=== PATIENT | male | born 1980 | race American Indian/Alaskan Native ===

== ENCOUNTER 2020-10-18 07:26 | Emergency (ER) | payer MEDICARE ==
[2020-10-18 07:41] VITALS: BP 136/91
--- NOTE | 2020-10-18 10:46 | Emergency Department Report ---
ED General Adult HPI - General Chief complaint: Headache Stated complaint: HEADACHE, LEFT EYE PAIN Time Seen by Provider: 10/18/20 09:47 Source: patient Mode of arrival: Ambulatory Limitations: No Limitations - History of Present Illness Initial comments: 40-year-old -[place] male presents to the emergency room stating that he has had a headache and left eye pain for a few days. Patient states that he has been having chest pain for the last week. Patient denies any cough. Patient reports that he was discharged from [facility] [place] and comes here stating that they did not do a CT scan of his head. Patient reports that his headache is not the worst headache of his life. Denies any nausea no vomiting states he does have some blurred vision but was told that he needed to wear glasses and has not had his eyes checked in 2 years. Patient denies any runny nose nasal congestion no photophobia. Patient also reports chest pain for a week try taking Shayy- [place] plus. He reports that the pain is in his upper chest when he bends down he has sharp pains. He denies any radiation of his pain. Denies any prevention from sleeping. Denies any injury to his chest. Denies any cough no fever. Patient denies thunderclap headache or worst headache of his life. Patient denies any difficulty with moving his neck no neck pain. Patient does endorse that he smokes cigarettes daily denies any marijuana or alcohol use. Patient reports no past medical history takes no medications on a daily basis and has no known drug allergies. -: week(s) (1 week Chest pain. ) Location: eyes (left ), chest - Related Data Allergies Allergy/AdvReac Type Severity Reaction Status Date / Time No Known Allergies Allergy Unverified 10/18/20 07:38 ED Review of Systems ROS: Stated complaint: HEADACHE, LEFT EYE PAIN Other details as noted in HPI ED Past Medical Hx - Past Medical History Previous Medical History?: Yes Hx Asthma: Yes - Surgical History Past Surgical History?: No - Social History Smoking Status: Current Every Day Smoker Substance Use Type: None ED Physical Exam - General Limitations: No Limitations General appearance: alert, in no apparent distress - Head Head exam: Present: atraumatic, normocephalic - Eye Eye exam: Present: normal appearance - Expanded Eye Exam Expanded Eyelids: Normal Inspection: Left Pupils: Regular, Round: Bilateral Sclera/Conjunctival: Normal Inspection: Bilateral Visual acuity (R) = 20/: 20 Visual acuity (L) = 20/: 40 With correction: Yes (20) IOP measured with: Tonopen (not availble) - ENT ENT exam: Present: mucous membranes moist - Neck Neck exam: Present: normal inspection - Respiratory Respiratory exam: Present: normal lung sounds bilaterally. Absent: respiratory distress - Cardiovascular Cardiovascular Exam: Present: regular rate, normal rhythm. Absent: systolic murmur, diastolic murmur, rubs, gallop - GI/Abdominal GI/Abdominal exam: Present: soft, normal bowel sounds - Rectal Rectal exam: Present: deferred - Extremities Exam Extremities exam: Present: normal inspection - Back Exam Back exam: Present: normal inspection - Neurological Exam Neurological exam: Present: alert, oriented X3, CN II-XII intact, normal gait - Expanded Neurological Exam Expanded Neurological exam: Present: protecting the airway. Absent: ataxia, total aphasia Patient oriented to: Present: person, place, time Cranial nerves: EOM's Intact: Normal, Gag Reflex: Normal, Tongue Deviation: Normal, Nystagmus: Normal, Facial Sensation: Normal, Facial Palsy with Forehead Movement: Normal, Facial Palsy without Forehead Movement: Normal Cerebellar function: Finger to Nose: Normal, Heel to Belcher: Normal, Romberg: Normal Upper motor neuron: Yaya Neglect: Abnormal Right, Pronator Drift: Abnormal Right, Babinski Sign: Abnormal Right, Sensory Extinction: Abnormal Right Sensory exam: Upper Extremity Light Touch: Normal, Upper Extremity Pin Prick: Normal, Upper Extremity Temperature: Normal, UE 2 Point Discrimination: Normal, Lower Extremity Light Touch: Normal, Lower Extremity Pin Prick: Normal, Lower Extremity Temperature: Normal, LE 2 Point Discrimination: Normal Motor strength exam: RUE: 4, LUE: 4, RLE: 4, LLE: 4 Best Eye Response (Amber): (4) open spontaneously Best Motor Response (Amber): (6) obeys commands Best Verbal Response ([place]): (5) oriented Amber Total: 15 - Psychiatric Psychiatric exam: Present: normal affect, normal mood - Skin Skin exam: Present: warm, dry, intact, normal color. Absent: rash ED Course Vital Signs 10/18/20 10/18/20 07:39 08:58 Temperature 98.3 F Pulse Rate 72 Respiratory 16 16 Rate Blood Pressure 136/91 O2 Sat by Pulse 99 Oximetry - Consultations Consultation #1: 10/18/20 13:41 Call central supplies to locate Dami[facility]-Pen as we do not know where the ER pain is. Consultation #2: 10/18/20 15:[address] Jeronimo from [facility] in [place] she states that she would like to see the patient tomorrow. She feels that there is no medication that is needed at this time. She feels that is less likely glaucoma but question if it is possible iritis versus uveitis. States that she evaluate tomorrow. ED Medical Decision Making - Lab Data Laboratory Tests 10/18/20 11:08 Troponin T < 0.010 - EKG Data EKG shows normal: sinus rhythm Rate: normal - Radiology Data Radiology results: report reviewed [facility] [address] [place] [address] XRay Report Signed Patient: ISIS GARCIA MR#: [id number] : 1980 Acct:[id number] Age/Sex: 40 / M ADM Date: 10/18/20 Loc: ED Attending Dr: Ordering Physician: ZENOBIA FLORES Date of Service: 10/18/20 Procedure(s): XR chest routine 2V Accession Number(s): [id number] cc: ZENOBIA FLORES Fluoro Time In Minutes: CHEST 2 VIEWS INDICATION / CLINICAL INFORMATION: chest pain. COMPARISON: 02/14/2020 FINDINGS: SUPPORT DEVICES: None. HEART / MEDIASTINUM: No significant abnormality. LUNGS / PLEURA: No significant pulmonary or pleural abnormality. No pneumothorax. ADDITIONAL FINDINGS: No significant additional findings. IMPRESSION: 1. No acute findings. Signer Name: Chris Gan DO Signed: 10/18/2020 11:37 AM Workstation Name: [id number] Transcribed By: CARRIE Dictated By: CHRIS GAN DO Electronically Authenticated By: CHRIS GAN DO Signed Date/Time: 10/18/20 1137 DD/ 36 TD/TT: Print Cancel - Medical Decision Making 40-year-old -[place] male presents to the emergency room stating that he has had a headache and left eye pain for a few days. Patient states that he has been having chest pain for the last week. Patient denies any cough. Patient reports that he was discharged from [facility] [place] and comes here stating that they did not do a CT scan of his head. Patient reports that his headache is not the worst headache of his life. Denies any nausea no vomiting states he does have some blurred vision but was told that he needed to wear glasses and has not had his eyes checked in 2 years. Patient denies any runny nose nasal congestion no photophobia. Patient also reports chest pain for a week try taking Shayy- [place] plus. He reports that the pain is in his upper chest when he bends down he has sharp pains. He denies any radiation of his pain. Denies any prevention from sleeping. Denies any injury to his chest. Denies any cough no fever. Patient denies thunderclap headache or worst headache of his life. Patient denies any difficulty with moving his neck no neck pain. Patient does endorse that he smokes cigarettes daily denies any marijuana or alcohol use. Patient reports no past medical history takes no medications on a daily basis and has no known drug allergies. Discussed case with ER attending Dr. Coelho recommends visual acuity, eye pressure, chest x-ray and one troponin. Chest x-ray is within normal limits negative troponin fluorescein exam is negative for any foreign body no corneal abrasion. EKG shows enlargement of the atrial. Visual acuities 20/20 both eyes 20/40 left eye and 20/25 right eye. Patient is stable to be discharged home and to follow-up with a primary care provider. Damián-Pen is not available in the ER charge nurse Sanna pineda in both [place]. Critical care attestation.: If time is entered above; I have spent that time in minutes in the direct care of this critically ill patient, excluding procedure time. ED Disposition Clinical Impression: Acute nonspecific chest pain with low risk of coronary artery disease, In termittent headache, Blurring, left eye, Acute left eye pain Disposition: - TO HOME OR SELFCARE Is pt being admited?: No Does the pt Need Aspirin: No Condition: Stable Instructions: Nonspecific Chest Pain, Adult, [id number], Pain Without a Known Cause, Chest Pain (ED) Additional Instructions: Recommend trying [id number] Excedrin Migraine. Follow-up with an baseball inspector and repairer to check eye pressure. [facility] will see you tomorrow They are locating in [place] listing below for your convenience. I have listed Dr. Zelaya he is also an baseball inspector and repairer that she can call to see if you can get an appointment first thing tomorrow. Follow-up with a primary care provider or timber treating tank operator for your nonspecific chest pain. I have listed information as below for your convenience. Referrals: [facility] [Provider Group] - 3-5 Days [facility] [Provider Group] - 3-5 Days JERZY CARVALHO MD [Staff Physician] - 3-5 Days [facility] [Other] - 3-5 Days (They will see you tomorrow) Forms: Work/School Release Form(ED)
--- NOTE | 2020-10-18 11:42 | XRay Report ---
CHEST 2 VIEWS INDICATION / CLINICAL INFORMATION: chest pain. COMPARISON: 02/14/2020 FINDINGS: SUPPORT DEVICES: None. HEART / MEDIASTINUM: No significant abnormality. LUNGS / PLEURA: No significant pulmonary or pleural abnormality. No pneumothorax. ADDITIONAL FINDINGS: No significant additional findings. IMPRESSION: 1. No acute findings. Signer Name: Chris Sharif DO Signed: 10/18/2020 11:37 AM Workstation Name: [id number]
[2020-10-18] MEDS ORDERED: FLUORESCEIN 1 MG STRIP OP ONE (12:53)
--- NOTE | 2020-10-19 10:41 | Electrocardiograph Report ---
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
== END 2020-10-18 15:24 | disposition home or self-care (01) ==
LOC: ED 07:26
DX: H57.12 Ocular pain, left eye (principal); R07.89 Other chest pain; R51.9 Headache, unspecified; H53.8 Other visual disturbances; J45.909 Unspecified asthma, uncomplicated; F17.200 Nicotine dependence, unspecified, uncomplicated
CPT/HCPCS: 36415; 71046; 84484; 93005